=== PATIENT | male | born 1985 | race African-American/Black ===

== ENCOUNTER 2022-04-17 17:38 | Emergency (ER) | payer MEDICAID ==
[~2022-04-17] VITALS: Ht 182.9 cm; Wt 91.0 kg
[2022-04-17] MEDS ORDERED: IBUP-2028 MT (19:25)
[2022-04-17] MEDS ORDERED: IBUPROFEN 400MG TABLET PO ONE (19:30)
[2022-04-17 20:07] VITALS: BP 115/78
== END 2022-04-17 20:10 | disposition home or self-care (01) ==
LOC: ER 18:09
DX: R22.1 Localized swelling, mass and lump, neck (principal); D17.9 Benign lipomatous neoplasm, unspecified
CPT/HCPCS: 99282